=== PATIENT | male | born 1950 | race American Indian/Alaskan Native ===

== ENCOUNTER 2021-05-22 01:02 | Inpatient (IN) | payer BC ==
[2021-05-22] MEDS ORDERED: ASPIRIN 325 MG TAB PO ONE (01:48)
--- NOTE | 2021-05-22 01:51 | Emergency Department Report ---
ED Chest Pain HPI - General Chief Complaint: Dyspnea/Respdistress Stated Complaint: POSS AMS PUI?: No Time Seen by Provider: 05/22/21 01:40 Source: patient, EMS Mode of arrival: Stretcher Limitations: No Limitations - History of Present Illness Initial Comments: Patient is a 71-year-old male who presents emergency room with complaints of chest pain and shortness of breath patient states his chest pain shortness of breath started 3 days ago. Patient states that he feels like he is dying. Patient states his symptoms are worsening. Patient states he is in a local rehab center and was sent here for evaluation. Patient denies nausea vomiting. Patient states he was diagnosed with Covid May 07. Patient is alert and oriented x3. Patient answers questions appropriately. MD Complaint: chest pain, other -: Sudden Onset: during rest Pain Location: left chest Pain Radiation: none Severity: severe Severity scale (0 -10): 10 Quality: sharp Consistency: constant Improves With: rest Worsens With: exertion re: dyspnea, sense of impending doom. denies: nausea, vomting, diaphoresis Other Symptoms: denies: cough, fever, syncope Treatments Prior to Arrival: none Aspirin use within the Past 7 Days: (0) No - Related Data On Oral Contraceptives: No Allergies Allergy/AdvReac Type Severity Reaction Status Date / Time No Known Allergies Allergy Unverified 05/22/21 01:47 Heart Score - HEART Score History: Moderately suspicious EKG: Non-specific Age: > 65 Risk factors: 1-2 risk factors Troponin: 1-3x normal limit HEART Score: 6 - EKG Read Time Time EKG Completed: 00:00 (0) EKG Read Time: 00:00 ED Review of Systems ROS: Stated complaint: POSS AMS Other details as noted in HPI Constitutional: denies: chills, fever Eyes: denies: eye pain, eye discharge, vision change ENT: denies: ear pain, throat pain Respiratory: see HPI, shortness of breath. denies: cough, wheezing Cardiovascular: as per HPI, chest pain. denies: palpitations Endocrine: no symptoms reported Gastrointestinal: denies: abdominal pain, nausea, diarrhea Genitourinary: denies: urgency, dysuria Musculoskeletal: denies: back pain, joint swelling, arthralgia Skin: denies: rash, lesions Neurological: denies: headache, weakness, paresthesias Psychiatric: denies: anxiety, depression Hematological/Lymphatic: denies: easy bleeding, easy bruising ED Past Medical Hx - Past Medical History Previous Medical History?: Yes Hx CVA: Yes Additional medical history: unsteady gait - Surgical History Past Surgical History?: No - Family History Family history: no significant - Social History Smoking Status: Never Smoker Substance Use Type: None ED Physical Exam - General Limitations: No Limitations General appearance: alert, in no apparent distress - Head Head exam: Present: atraumatic, normocephalic - Eye Eye exam: Present: normal appearance - ENT ENT exam: Present: mucous membranes moist - Neck Neck exam: Present: normal inspection - Respiratory Respiratory exam: Present: normal lung sounds bilaterally. Absent: respiratory distress, wheezes, rales, rhonchi, chest wall tenderness - Cardiovascular Cardiovascular Exam: Present: regular rate, normal rhythm. Absent: systolic murmur, diastolic murmur, rubs, gallop - GI/Abdominal GI/Abdominal exam: Present: soft, normal bowel sounds - Rectal Rectal exam: Present: deferred - Extremities Exam Extremities exam: Present: normal inspection - Back Exam Back exam: Present: normal inspection - Neurological Exam Neurological exam: Present: alert, oriented X3 - Psychiatric Psychiatric exam: Present: normal affect, normal mood - Skin Skin exam: Present: warm, dry, intact, normal color. Absent: rash ED Course Vital Signs 05/22/21 05/22/21 05/22/21 01:29 01:52 02:00 Temperature 98.3 F Pulse Rate 80 76 66 Respiratory 18 20 15 Rate Blood Pressure 119/74 Blood Pressure 119/74 [Left] O2 Sat by Pulse 100 100 100 Oximetry 05/22/21 05/22/21 05/22/21 02:16 02:30 02:45 Temperature Pulse Rate 67 70 67 Respiratory 21 22 16 Rate Blood Pressure 119/72 115/63 124/76 Blood Pressure [Left] O2 Sat by Pulse 100 100 100 Oximetry 05/22/21 05/22/21 03:52 04:01 Temperature Pulse Rate 65 Respiratory 14 Rate Blood Pressure 124/76 Blood Pressure [Left] O2 Sat by Pulse 100 97 Oximetry - Reevaluation(s) Reevaluation #1: Patient states his pain is better. Patient states shortness of breath is better. 05/22/21 03:08 Reevaluation #2: Patient was placed on heparin. Patient has an elevated troponin. I discussed all results with patient. I discussed plan of care with patient. Patient agrees with plan of care and admission. Patient to be admitted to the hospitalist service. 05/22/21 04:48 - Consultations Consultation #1: Hospitalist consulted for admission. Hospitalist to admit patient. 05/22/21 04:48 JIMMIE score - Jimmie Score Age > 65: (1) Yes Aspirin use within the Past 7 Days: (1) Yes 3 or more CAD Risk Factors: (0) No 2 or more Angina events in past 24 hrs: (1) Yes Known CAD with more than 50% Stenosis: (0) No Elevated Cardiac Markers: (1) Yes ST Deviation Greater than 0.5mm: (0) No JIMMIE Score: 4 ED Medical Decision Making - Lab Data Result diagrams: 05/22/21 02:15 05/22/21 02:15 - EKG Data -: EKG Interpreted by Me EKG shows normal: sinus rhythm, axis, intervals, QRS complexes, ST-T waves Rate: normal - Radiology Data Radiology results: report reviewed, image reviewed interpreted by me: Chest x-ray: No pneumonia, no pneumothorax, no foreign body, no osseous findings, no acute findings CHEST 1 VIEW 05/22/2021 2:03 AM INDICATION / CLINICAL INFORMATION: Chest Pain. COMPARISON: None available. FINDINGS: SUPPORT DEVICES: None. HEART / MEDIASTINUM: No significant abnormality. LUNGS / PLEURA: No significant pulmonary or pleural abnormality. No pneumothorax. ADDITIONAL FINDINGS: No significant additional findings. IMPRESSION: 1. No acute findings. - Medical Decision Making Patient is a 71-year-old male that presents emergency room with complaints of chest pain shortness of breath. Patient had Covid a month ago. Patient at a local long-term sent here for evaluation. Patient had labs done which were essentially unremarkable except for elevated troponin. Patient has normal kidney function. Patient could have 5 skills with NSTEMI and the patient was placed on heparin drip. Patient's chest x-ray done is negative for acute finding. I personally reviewed the chest x-ray. Patient's EKG was done and it shows normal sinus rhythm no ST changes. Patient admitted to the hospital service for further evaluation and treatment. Critical care time documented due to the multiple reassessments, prolonged time at the bedside, interpretation of diagnostics and labs. - Differential Diagnosis Chest pain, shortness breath, ACS, Covid, pneumonia Critical Care Time: Yes Critical care time in (mins) excluding proc time.: 35 Critical care attestation.: If time is entered above; I have spent that time in minutes in the direct care of this critically ill patient, excluding procedure time. Critical Care Time: 35 minutes ED Disposition Clinical Impression: Shortness of breath, NSTEMI (non-ST elevated myocardial infarction) Chest pain Qualifiers: Chest pain type: unspecified Qualified Code(s): R07.9 - Chest pain, unspecified Disposition: ADMITTED INPATIENT Is pt being admited?: Yes Does the pt Need Aspirin: No Condition: Critical Time of Disposition: 04:57
--- NOTE | 2021-05-22 02:17 | XRay Report ---
CHEST 1 VIEW 05/22/2021 2:03 AM INDICATION / CLINICAL INFORMATION: Chest Pain. COMPARISON: None available. FINDINGS: SUPPORT DEVICES: None. HEART / MEDIASTINUM: No significant abnormality. LUNGS / PLEURA: No significant pulmonary or pleural abnormality. No pneumothorax. ADDITIONAL FINDINGS: No significant additional findings. IMPRESSION: 1. No acute findings. Signer Name: Dae Lakhani MD Signed: 05/22/2021 2:13 AM Workstation Name: [id number]
[2021-05-22 02:35] LABS: Hematocrit 33.5 % (35.5-45.6); Hemoglobin 11.2 gm/dl (11.8-15.2); Mean Corpuscular HGB Conc 34 % (32-34); Mean Corpuscular Volume 85 fl (84-94); Platelet Count 336 K/mm3 (140-440); Red Blood Count 3.93 M/mm3 (3.65-5.03); Red Cell Distribution Width 15.8 % (13.2-15.2)
[2021-05-22 02:46] LABS: INR 0.96 (0.87-1.13)
[2021-05-22 02:47] LABS: Partial Thromboplastin Time 33.9 Sec. (24.2-36.6)
[2021-05-22 03:00] LABS: Alanine Aminotransferase 18 units/L (7-56); Albumin 3.5 g/dL (3.9-5); BUN/Creatinine Ratio 19; Blood Urea Nitrogen 19 mg/dL (9-20); Calcium 10.6 mg/dL (8.4-10.2); Hemolysis Index 1
[2021-05-22 03:13] LABS: Anisocytosis 1+; Band Neutrophils # (Manual) 0.1 K/mm3; Poikilocytosis 2+; Schistocytes Rare; Total Cells Counted 100
[2021-05-22 03:14] LABS: Burr Cells 2+; Platelet Estimate Consistent w Auto
[2021-05-22] MEDS ORDERED: HEPARIN 10,000 UNITS/10 ML VIAL IV ONE (04:43)
[2021-05-22] MEDS ORDERED: HEPARIN/ 0.45% NACL DRIP 25,000 UNIT/500 ML BAG IV SCH (05:00)
[2021-05-22] MEDS ORDERED: ONDANSETRON 4 MG/2 ML INJ IV PRN (10:00)
[2021-05-22] MEDS ORDERED: oxyCODONE /ACETAMINOPHEN 5-325MG TAB PO PRN (10:00)
[2021-05-22] MEDS ORDERED: MORPHINE 4 MG/1 ML INJ IV PRN (10:00)
[2021-05-22] MEDS ORDERED: ACETAMINOPHEN 325 MG TAB PO PRN (10:00)
--- NOTE | 2021-05-22 13:35 | Consultation ---
History of Present Illness Consult date: 05/22/21 Consult reason: elevated troponin History of present illness: The patient is a 71-year-old man who presented to the emergency room from [facility], with generalized constitutional complaints. He had apparently been in the rehab following a protracted COVID-19 illness. In the emergency room, he had an EKG which was normal sinus rhythm, essentially normal ECG. Chest x-ray revealed a normal-sized cardiac silhouette, clear lungs. Laboratory studies were done that included a troponin level that was borderline increased at 0.08. Cardiology consultation was requested for further assessment. To be noted that during my interview with this patient he denied any chest pain, he denied any palpitations. He states that he has some cough and sputum production, which has been consistent since his Covid infection. There is no lower extremity edema. There is no prior cardiac history. Past History Past Medical History: other (COVID-19 infection) Medications and Allergies Allergies Allergy/AdvReac Type Severity Reaction Status Date / Time No Known Allergies Allergy Unverified 05/22/21 01:47 Home Medications Medication Instructions Recorded Confirmed Last Taken Type No Known Home Medications [No 05/22/21 05/22/21 Unknown History Reported Home Medications] Active Meds: Active Medications Acetaminophen (Acetaminophen 325 Mg Tab) 650 mg PO Q4H PRN PRN Reason: Pain MILD(1-3)/Fever >100.5/MADRIGAL Heparin Sodium/Sodium Chloride (Heparin/ 0.45% Nacl-25,000 Unit/500 Ml) 25,000 unit in 500 mls @ 18 mls/hr IV TITRATE TANNA; Protocol Last Admin: 05/22/21 05:12 Dose: 15 units/kg/hr, 18.371 mls/hr Documented by: Morphine Sulfate (Morphine 4 Mg/1 Ml Inj) 4 mg IV Q4H PRN PRN Reason: Pain , Severe (7-10) Ondansetron HCl (Ondansetron 4 Mg/2 Ml Inj) 4 mg IV Q8H PRN PRN Reason: Nausea And Vomiting Oxycodone/Acetaminophen (Oxycodone /Acetaminophen 5-325mg Tab) 1 tab PO Q6H PRN PRN Reason: Pain, Moderate (4-6) Sodium Chloride (Sodium Chloride 0.9% 10 Ml Flush Syringe) 10 ml IV BID TANNA Last Admin: 05/22/21 11:32 Dose: Not Given Documented by: Sodium Chloride (Sodium Chloride 0.9% 10 Ml Flush Syringe) 10 ml IV PRN PRN PRN Reason: LINE FLUSH Review of Systems Cardiovascular: shortness of breath, no chest pain, no orthopnea, no palpitations, no rapid/irregular heart beat, no edema, no syncope, no lightheadedness Physical Examination Vital Signs Temp Pulse Resp BP Pulse Ox 98.3 F 80 18 119/74 100 05/22/21 01:29 05/22/21 01:29 05/22/21 01:29 05/22/21 01:05/22/21 01:29 General appearance: no acute distress, cachectic, other (Patient appears cachectic and undernourished with evidence of muscle wasting) HEENT: Positive: PERRL Neck: Positive: neck supple Cardiac: Positive: Reg Rate and Rhythm Lungs: Positive: Decreased Breath Sounds Neuro: Positive: Grossly Intact Abdomen: Positive: Soft Male genitourinary: Positive: deferred Skin: Positive: Clear Extremities: Absent: edema Results 05/22/21 02:15 05/22/21 02:15 Cardiac Enzymes 05/22/21 Range/Units 02:15 AST 27 (5-40) units/L Coagulation 05/22/21 Range/Units 02:15 PT 13.8 (12.2-14.9) Sec. INR 0.96 (0.87-1.13) APTT 33.9 (24.2-36.6) Sec. CBC 05/22/21 Range/Units 02:15 WBC 7.9 (4.5-11.0) K/mm3 RBC 3.93 (3.65-5.03) M/mm3 Hgb 11.2 L (11.8-15.2) gm/dl Hct 33.5 L (35.5-45.6) % Plt Count 336 (140-440) K/mm3 Comprehensive Metabolic Panel 05/22/21 Range/Units 02:15 Sodium 143 (137-145) mmol/L Potassium 3.9 (3.6-5.0) mmol/L Chloride 101.2 (98-107) mmol/L Carbon Dioxide 28 (22-30) mmol/L BUN 19 (9-20) mg/dL Creatinine 1.0 (0.8-1.3) mg/dL Glucose 110 H (75-100) mg/dL Calcium 10.6 H (8.4-10.2) mg/dL AST 27 (5-40) units/L ALT 18 (7-56) units/L Alkaline Phosphatase 92 (35-129) units/L Total Protein 7.0 (6.3-8.2) g/dL Albumin 3.5 L (3.9-5) g/dL EKG interpretations - Telemetry EKG Rhythm: Sinus Rhythm Assessment and Plan - Patient Problems (1) Elevated troponin Current Visit: Yes Status: Acute Plan to address problem: 71-year-old man who is recovering slowly from a post COVID-19 illness. He has no cardiac symptoms, ECG is normal, chest x-ray is normal. No clinical or ECG indication of acute coronary syndrome, no indication for further cardiac evaluation. We will defer to internal medicine for further management of the patient's post COVID-19 symptoms and his apparent weight loss.
--- NOTE | 2021-05-22 14:35 | History and Physical Report ---
History of Present Illness Date of examination: 05/22/21 Date of admission: 05/22/21 04:57 Chief complaint: Shortness of breath and chest pain History of present illness: 71-year-old male with recent COVID-19 infection who presented with complaints of shortness of breath and chest pain. Patient tested positive on 05/06. Since then he has been in self-isolation at home with his . He denies having chest pain or shortness of breath that was bothersome. He reports a cough productive of thick webb to greenish sputum. He denies palpitations and hemoptysis. At time of interview he denies chest pain. At baseline he is able to take care of himself and walk at least 4 blocks without issue. Chest x-ray was negative for acute findings. Initial troponin was 0.083 and increased to 0.102. Cardiology was consulted for further recommendations. Patient was a dmitted to medicine for NSTEMI. Past History Past Medical History: No medical history, other (COVID-19 infection) Past Surgical History: No surgical history Social history: , lives with family Family history: no significant family history Medications and Allergies Allergies Allergy/AdvReac Type Severity Reaction Status Date / Time No Known Allergies Allergy Unverified 05/22/21 01:47 Home Medications Medication Instructions Recorded Confirmed Last Taken Type No Known Home Medications [No 05/22/21 05/22/21 Unknown History Reported Home Medications] Active Meds: Active Medications Acetaminophen (Acetaminophen 325 Mg Tab) 650 mg PO Q4H PRN PRN Reason: Pain MILD(1-3)/Fever >100.5/MADRIGAL Morphine Sulfate (Morphine 4 Mg/1 Ml Inj) 4 mg IV Q4H PRN PRN Reason: Pain , Severe (7-10) Ondansetron HCl (Ondansetron 4 Mg/2 Ml Inj) 4 mg IV Q8H PRN PRN Reason: Nausea And Vomiting Oxycodone/Acetaminophen (Oxycodone /Acetaminophen 5-325mg Tab) 1 tab PO Q6H PRN PRN Reason: Pain, Moderate (4-6) Sodium Chloride (Sodium Chloride 0.9% 10 Ml Flush Syringe) 10 ml IV BID TANNA Last Admin: 05/22/21 11:32 Dose: Not Given Documented by: Sodium Chloride (Sodium Chloride 0.9% 10 Ml Flush Syringe) 10 ml IV PRN PRN PRN Reason: LINE FLUSH Review of Systems All systems: negative Constitutional: poor appetite Respiratory: cough with sputum Exam - Physical Exam Narrative exam: GENERAL: Thin female. Lying in bed on room. HEENT: Normocephalic. Atraumatic. NECK: Supple. CHEST/LUNGS: CTAB on room air HEART/CARDIOVASCULAR: RRR. No murmur, rubs or gallops appreciated. ABDOMEN: +BS. NT/ND. SKIN: No rashes noted. NEURO: No focal motor deficit. Follows all commands. MUSCULOSKELETAL: No joint effusion EXTREMITIES: No cyanosis, clubbing or edema. PSYCH: Cooperative. - Constitutional Vitals: Temp Pulse Resp BP Pulse Ox 98.3 F 55 L 11 L 133/72 100 05/22/21 01:29 05/22/21 06:31 05/22/21 06:31 05/22/21 06:31 05/22/21 06:31 HEART Score - HEART Score EKG: Non-specific Age: > 65 Risk factors: 1-2 risk factors Troponin: Troponin T 0.083 ng/mL (0.00-0.029) H 05/22/21 02:15 Troponin: 1-3x normal limit Results - Labs CBC & Chem 7: 05/22/21 02:15 05/22/21 02:15 Labs: Laboratory Last Values WBC 7.9 K/mm3 (4.5-11.0) 05/22/21 02:15 RBC 3.93 M/mm3 (3.65-5.03) 05/22/21 02:15 Hgb 11.2 gm/dl (11.8-15.2) L 05/22/21 02:15 Hct 33.5 % (35.5-45.6) L 05/22/21 02:15 MCV 85 fl (84-94) 05/22/21 02:15 MCH 29 pg (28-32) 05/22/21 02:15 MCHC 34 % (32-34) 05/22/21 02:15 RDW 15.8 % (13.2-15.2) H 05/22/21 02:15 Plt Count 336 K/mm3 (140-440) 05/22/21 02:15 [place] % (Auto) Electronics Supervisor 05/22/21 02:15 Add Manual Diff Complete 05/22/21 02:15 Total Counted 100 05/22/21 02:15 Seg Neuts % (Manual) 62.0 % (40.0-70.0) 05/22/21 02:15 Band Neutrophils % 1.0 % 05/22/21 02:15 Lymphocytes % (Manual) 20.0 % (13.4-35.0) 05/22/21 02:15 Monocytes % (Manual) 17.0 % (0.0-7.3) H 05/22/21 02:15 Nucleated RBC % Not Reportable 05/22/21 02:15 Seg Neutrophils # Man 4.9 K/mm3 (1.8-7.7) 05/22/21 02:15 Band Neutrophils # 0.1 K/mm3 05/22/21 02:15 Lymphocytes # (Manual) 1.6 K/mm3 (1.2-5.4) 05/22/21 02:15 Abs React Lymphs (Man) 0.0 K/mm3 05/22/21 02:15 Monocytes # (Manual) 1.3 K/mm3 (0.0-0.8) H 05/22/21 02:15 Eosinophils # (Manual) 0.0 K/mm3 (0.0-0.4) 05/22/21 02:15 Basophils # (Manual) 0.0 K/mm3 (0.0-0.1) 05/22/21 02:15 Metamyelocytes # 0.0 K/mm3 05/22/21 02:15 Myelocytes # 0.0 K/mm3 05/22/21 02:15 Promyelocytes # 0.0 K/mm3 05/22/21 02:15 Blast Cells # 0.0 K/mm3 05/22/21 02:15 WBC Morphology Not Reportable 05/22/21 02:15 Hypersegmented Neuts Not Reportable 05/22/21 02:15 Hyposegmented Neuts Not Reportable 05/22/21 02:15 Hypogranular Neuts Not Reportable 05/22/21 02:15 Smudge Cells Not Reportable 05/22/21 02:15 Toxic Granulation Not Reportable 05/22/21 02:15 Toxic Vacuolation Not Reportable 05/22/21 02:15 Dohle Bodies Not Reportable 05/22/21 02:15 Pelger-Huet Anomaly Not Reportable 05/22/21 02:15 Bhupinder Rods Not Reportable 05/22/21 02:15 Platelet Estimate Consistent w auto 05/22/21 02:15 Clumped Platelets Not Reportable 05/22/21 02:15 Plt Clumps, EDTA Not Reportable 05/22/21 02:15 Large Platelets Not Reportable 05/22/21 02:15 Giant Platelets Not Reportable 05/22/21 02:15 Platelet Satelliting Not Reportable 05/22/21 02:15 Plt Morphology Comment Not Reportable 05/22/21 02:15 RBC Morphology Not Reportable 05/22/21 02:15 Dimorphic RBCs Not Reportable 05/22/21 02:15 Polychromasia Not Reportable 05/22/21 02:15 Hypochromasia Not Reportable 05/22/21 02:15 Poikilocytosis 2+ 05/22/21 02:15 Anisocytosis 1+ 05/22/21 02:15 Microcytosis Not Reportable 05/22/21 02:15 Macrocytosis Not Reportable 05/22/21 02:15 Spherocytes Not Reportable 05/22/21 02:15 Pappenheimer Bodies Not Reportable 05/22/21 02:15 Sickle Cells Not Reportable 05/22/21 02:15 Target Cells Not Reportable 05/22/21 02:15 Tear Drop Cells Not Reportable 05/22/21 02:15 Ovalocytes Not Reportable 05/22/21 02:15 Helmet Cells Not Reportable 05/22/21 02:15 Grimes-Ross Bodies Not Reportable 05/22/21 02:15 Munger Rings Not Reportable 05/22/21 02:15 [place] Cells 2+ 05/22/21 02:15 Bite Cells Not Reportable 05/22/21 02:15 Crenated Cell Not Reportable 05/22/21 02:15 Elliptocytes Not Reportable 05/22/21 02:15 Acanthocytes (Spur) Not Reportable 05/22/21 02:15 Rouleaux Not Reportable 05/22/21 02:15 Hemoglobin C Crystals Not Reportable 05/22/21 02:15 Schistocytes Rare 05/22/21 02:15 Malaria parasites Not Reportable 05/22/21 02:15 Jey Bodies Not Reportable 05/22/21 02:15 Hem Pathologist Commnt No 05/22/21 02:15 PT 13.8 Sec. (12.2-14.9) 05/22/21 02:15 INR 0.96 (0.87-1.13) 05/22/21 02:15 APTT 33.9 Sec. (24.2-36.6) 05/22/21 02:15 Sodium 143 mmol/L (137-145) 05/22/21 02:15 Potassium 3.9 mmol/L (3.6-5.0) 05/22/21 02:15 Chloride 101.2 mmol/L (98-107) 05/22/21 02:15 Carbon Dioxide 28 mmol/L (22-30) 05/22/21 02:15 Anion Gap 18 mmol/L 05/22/21 02:15 BUN 19 mg/dL (9-20) 05/22/21 02:15 Creatinine 1.0 mg/dL (0.8-1.3) 05/22/21 02:15 Estimated GFR > 60 ml/min 05/22/21 02:15 BUN/Creatinine Ratio 19 % 05/22/21 02:15 Glucose 110 mg/dL (75-100) H 05/22/21 02:15 Calcium 10.6 mg/dL (8.4-10.2) H 05/22/21 02:15 Total Bilirubin 0.50 mg/dL (0.1-1.2) 05/22/21 02:15 AST 27 units/L (5-40) 05/22/21 02:15 ALT 18 units/L (7-56) 05/22/21 02:15 Alkaline Phosphatase 92 units/L (35-129) 05/22/21 02:15 Troponin T 0.083 ng/mL (0.00-0.029) H 05/22/21 02:15 Total Protein 7.0 g/dL (6.3-8.2) 05/22/21 02:15 Albumin 3.5 g/dL (3.9-5) L 05/22/21 02:15 Albumin/Globulin Ratio 1.0 % 05/22/21 02:15 - Imaging and Cardiology EKG: image reviewed Chest x-ray: report reviewed, image reviewed Assessment and Plan Assessment and plan: #Elevated troponin -patient without chest pain and shortness of breath -CXR negative -EKG without acute ST changes -Troponin 0.083 -> 0.105 -will order another troponin -heparin drip discontinued -Cardiology consulted, recommendations appreciated #History of COVID-19 infection -Positive test 05/06 -Repeat ordered #Weight loss -patient reports decreased appetite since COVID infection -nutrition consult & boost with meals #Normocytic anemia -H&H 11.2/33.5 -Iron studies ordered -Patient may need age-appropriate outpatient colonoscopy
[2021-05-22 15:35] LABS: Chol/HDL Ratio 2.33 %
[2021-05-23 10:17] LABS: Hematocrit 34.2 % (35.5-45.6); Hemoglobin 11.8 gm/dl (11.8-15.2); Mean Corpuscular HGB Conc 35 % (32-34); Mean Corpuscular Volume 85 fl (84-94); Platelet Count 323 K/mm3 (140-440); Red Blood Count 4.04 M/mm3 (3.65-5.03); Red Cell Distribution Width 14.9 % (13.2-15.2)
[2021-05-23 10:33] LABS: BUN/Creatinine Ratio 18; Blood Urea Nitrogen 14 mg/dL (9-20); Calcium 10.3 mg/dL (8.4-10.2); Hemolysis Index 3
--- NOTE | 2021-05-23 10:58 | Progress Note ---
Assessment and Plan Assessment and plan: #Elevated troponin -patient without chest pain and shortness of breath -CXR negative -EKG without acute ST changes -Troponin 0.083 -> 0.105 -will order another troponin -heparin drip discontinued -Cardiology consulted, recommendations appreciated #Dyspnea -patient reports "not being able to breathe" -oxygen saturation within normal limits on examinations -likely anxiety component, persistent thoughts of -home O2 evaluation for reassurance #History of COVID-19 infection -Positive test 05/06 -Repeat ordered #Weight loss -patient reports decreased appetite since COVID infection -patient has not had age appropriate cancer screenings; advised to follow up with PCP at discharge -nutrition consult & boost with meals #Normocytic anemia -H&H 11.8/34.2 -Iron studies pending -Patient will need age-appropriate outpatient colonoscopy Disposition Plan: Pending mental health eval Total Time Spent with Patient (Minutes): 20 minutes Hospitalist Physical - Physical exam Narrative exam: GENERAL: Thin female. Lying in bed on room. HEENT: Normocephalic. Atraumatic. NECK: Supple. CHEST/LUNGS: CTAB on room air HEART/CARDIOVASCULAR: RRR. No murmur, rubs or gallops appreciated. ABDOMEN: +BS. NT/ND. SKIN: No rashes noted. NEURO: No focal motor deficit. Follows all commands. MUSCULOSKELETAL: No joint effusion EXTREMITIES: No cyanosis, clubbing or edema. PSYCH: Cooperative. - Constitutional Vitals: Temp Pulse Resp BP Pulse Ox 97.6 F 70 18 124/72 99 05/23/21 07:36 05/23/21 07:36 05/23/21 07:36 05/23/21 07:36 05/23/21 07:36 General appearance: Present: no acute distress, cachectic, other (Patient appears cachectic and undernourished with evidence of muscle wasting) HEART Score - HEART Score EKG: Non-specific Age: > 65 Risk factors: 1-2 risk factors Troponin: Troponin T 0.095 ng/mL (0.00-0.029) H 05/22/21 16:26 Troponin: 1-3x normal limit Results - Labs CBC & Chem 7: 05/23/21 09:51 05/23/21 09:51 Labs: Laboratory Last Values WBC 7.8 K/mm3 (4.5-11.0) 05/23/21 09:51 RBC 4.04 M/mm3 (3.65-5.03) 05/23/21 09:51 Hgb 11.8 gm/dl (11.8-15.2) 05/23/21 09:51 Hct 34.2 % (35.5-45.6) L 05/23/21 09:51 MCV 85 fl (84-94) 05/23/21 09:51 MCH 29 pg (28-32) 05/23/21 09:51 MCHC 35 % (32-34) H 05/23/21 09:51 RDW 14.9 % (13.2-15.2) 05/23/21 09:51 Plt Count 323 K/mm3 (140-440) 05/23/21 09:51 Will % (Auto) Machine Stitcher 05/22/21 02:15 Add Manual Diff Complete 05/22/21 02:15 Total Counted 100 05/22/21 02:15 Seg Neuts % (Manual) 62.0 % (40.0-70.0) 05/22/21 02:15 Band Neutrophils % 1.0 % 05/22/21 02:15 Lymphocytes % (Manual) 20.0 % (13.4-35.0) 05/22/21 02:15 Monocytes % (Manual) 17.0 % (0.0-7.3) H 05/22/21 02:15 Nucleated RBC % Not Reportable 05/22/21 02:15 Seg Neutrophils # Man 4.9 K/mm3 (1.8-7.7) 05/22/21 02:15 Band Neutrophils # 0.1 K/mm3 05/22/21 02:15 Lymphocytes # (Manual) 1.6 K/mm3 (1.2-5.4) 05/22/21 02:15 Abs React Lymphs (Man) 0.0 K/mm3 05/22/21 02:15 Monocytes # (Manual) 1.3 K/mm3 (0.0-0.8) H 05/22/21 02:15 Eosinophils # (Manual) 0.0 K/mm3 (0.0-0.4) 05/22/21 02:15 Basophils # (Manual) 0.0 K/mm3 (0.0-0.1) 05/22/21 02:15 Metamyelocytes # 0.0 K/mm3 05/22/21 02:15 Myelocytes # 0.0 K/mm3 05/22/21 02:15 Promyelocytes # 0.0 K/mm3 05/22/21 02:15 Blast Cells # 0.0 K/mm3 05/22/21 02:15 WBC Morphology Not Reportable 05/22/21 02:15 Hypersegmented Neuts Not Reportable 05/22/21 02:15 Hyposegmented Neuts Not Reportable 05/22/21 02:15 Hypogranular Neuts Not Reportable 05/22/21 02:15 Smudge Cells Not Reportable 05/22/21 02:15 Toxic Granulation Not Reportable 05/22/21 02:15 Toxic Vacuolation Not Reportable 05/22/21 02:15 Dohle Bodies Not Reportable 05/22/21 02:15 Pelger-Huet Anomaly Not Reportable 05/22/21 02:15 Bhupinder Rods Not Reportable 05/22/21 02:15 Platelet Estimate Consistent w auto 05/22/21 02:15 Clumped Platelets Not Reportable 05/22/21 02:15 Plt Clumps, EDTA Not Reportable 05/22/21 02:15 Large Platelets Not Reportable 05/22/21 02:15 Giant Platelets Not Reportable 05/22/21 02:15 Platelet Satelliting Not Reportable 05/22/21 02:15 Plt Morphology Comment Not Reportable 05/22/21 02:15 RBC Morphology Not Reportable 05/22/21 02:15 Dimorphic RBCs Not Reportable 05/22/21 02:15 Polychromasia Not Reportable 05/22/21 02:15 Hypochromasia Not Reportable 05/22/21 02:15 Poikilocytosis 2+ 05/22/21 02:15 Anisocytosis 1+ 05/22/21 02:15 Microcytosis Not Reportable 05/22/21 02:15 Macrocytosis Not Reportable 05/22/21 02:15 Spherocytes Not Reportable 05/22/21 02:15 Pappenheimer Bodies Not Reportable 05/22/21 02:15 Sickle Cells Not Reportable 05/22/21 02:15 Target Cells Not Reportable 05/22/21 02:15 Tear Drop Cells Not Reportable 05/22/21 02:15 Ovalocytes Not Reportable 05/22/21 02:15 Helmet Cells Not Reportable 05/22/21 02:15 Grimes-Edmonds Bodies Not Reportable 05/22/21 02:15 Odin Rings Not Reportable 05/22/21 02:15 [place] Cells 2+ 05/22/21 02:15 Bite Cells Not Reportable 05/22/21 02:15 Crenated Cell Not Reportable 05/22/21 02:15 Elliptocytes Not Reportable 05/22/21 02:15 Acanthocytes (Spur) Not Reportable 05/22/21 02:15 Rouleaux Not Reportable 05/22/21 02:15 Hemoglobin C Crystals Not Reportable 05/22/21 02:15 Schistocytes Rare 05/22/21 02:15 Malaria parasites Not Reportable 05/22/21 02:15 Jey Bodies Not Reportable 05/22/21 02:15 Hem Pathologist Commnt No 05/22/21 02:15 PT 13.8 Sec. (12.2-14.9) 05/22/21 02:15 INR 0.96 (0.87-1.13) 05/22/21 02:15 APTT 33.9 Sec. (24.2-36.6) 05/22/21 02:15 Heparin Anti-Xa Level 0.20 U.I./ml (0.3-0.7) L 05/22/21 14:12 Sodium 143 mmol/L (137-145) 05/22/21 02:15 Potassium 3.9 mmol/L (3.6-5.0) 05/22/21 02:15 Chloride 101.2 mmol/L (98-107) 05/22/21 02:15 Carbon Dioxide 27 mmol/L (22-30) 05/23/21 09:51 Anion Gap 18 mmol/L 05/22/21 02:15 BUN 14 mg/dL (9-20) 05/23/21 09:51 Creatinine 0.8 mg/dL (0.8-1.3) 05/23/21 09:51 Estimated GFR > 60 ml/min 05/23/21 09:51 BUN/Creatinine Ratio 18 % 05/23/21 09:51 Glucose 112 mg/dL (75-100) H 05/23/21 09:51 Hemoglobin A1c 6.1 % (4-6) H 05/22/21 14:12 Calcium 10.3 mg/dL (8.4-10.2) H 05/23/21 09:51 Ferritin 296.1 ng/mL (30.0-300.0) 05/22/21 16:26 Total Bilirubin 0.50 mg/dL (0.1-1.2) 05/22/21 02:15 AST 27 units/L (5-40) 05/22/21 02:15 ALT 18 units/L (7-56) 05/22/21 02:15 Alkaline Phosphatase 92 units/L (35-129) 05/22/21 02:15 Troponin T 0.095 ng/mL (0.00-0.029) H 05/22/21 16:26 Total Protein 7.0 g/dL (6.3-8.2) 05/22/21 02:15 Albumin 3.5 g/dL (3.9-5) L 05/22/21 02:15 Albumin/Globulin Ratio 1.0 % 05/22/21 02:15 Triglycerides 69 mg/dL (2-149) 05/22/21 14:12 Cholesterol 105 mg/dL (50-199) 05/22/21 14:12 LDL Cholesterol Direct 39 mg/dL (50-130) L 05/22/21 14:12 HDL Cholesterol 45 mg/dL (40-59) 05/22/21 14:12 Cholesterol/HDL Ratio 2.33 % 05/22/21 14:12 Dc/IV: Voiding Method Urinal Active Medications - Current Medications Current Medications: Generic Name Dose Route Start Last Admin Trade Name Freq PRN Reason Stop Dose Admin Acetaminophen 650 mg 05/22/21 10:00 Acetaminophen 325 Mg Tab PO Q4H PRN Pain MILD(1-3)/Fever >100.5/MADRIGAL Morphine Sulfate 4 mg 05/22/21 10:00 Morphine 4 Mg/1 Ml Inj IV Q4H PRN Pain , Severe (7-10) Ondansetron HCl 4 mg 05/22/21 10:00 Ondansetron 4 Mg/2 Ml Inj IV Q8H PRN Nausea And Vomiting Oxycodone/Acetaminophen 1 tab 05/22/21 10:00 Oxycodone /Acetaminophen 5-325mg Tab PO Q6H PRN Pain, Moderate (4-6) Sodium Chloride 10 ml 05/22/21 10:00 05/23/21 09:18 Sodium Chloride 0.9% 10 Ml Flush Syringe IV 10 ml BID TANNA Administration Sodium Chloride 10 ml 05/22/21 10:00 Sodium Chloride 0.9% 10 Ml Flush Syringe IV PRN PRN LINE FLUSH Nutrition/Malnutrition Assess - Dietary Evaluation Nutrition/Malnutrition Findings: Nutrition Notes Start: 05/22/21 14:12 Freq: Status: Active Protocol: Document 05/22/21 14:12 [facility] (Rec: 05/22/21 14:19 [facility] [id number]) Nutrition Notes 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 Weight Status Underweight Subjective/Other Information Pt screened for malnutrition risk. Spoke to pt via phone at 14:10. He says that he is a pescatarian; verbalizes several food preferences ( preferences sent to kitchen). He reports a fair appetite lately sec to illness; says he eats as much as he can. Burn Absent Trauma Absent Current % PO Fair (50-74%) Minimum of two criteria No Is patient on ventilator? No Is Patient Ambulatory and/or Out of Bed Yes REE-([facility]-ambulatory/OOB) [ 1901.874 NUTR.MSJOOB] Kcal/Kg value to use for calculation 35 Approximate Energy Requirements Using 2143 kcal/Kg Calculation Used for Recommendations Kcal/kg Additional Notes Pro needs 1.2-1.5g/k-92g/ day Fluid needs 1ml/kcal Nutrition Intervention Follow-Up By: 05/27/21 Additional Comments F/U: intakes, additional food preferences
--- NOTE | 2021-05-23 12:56 | Event Note ---
Date: 05/23/21 Had the opportunity to speak with the patient's Arleth Atkinson. We discussed his recent decline in health. She was concerned about his nutritional status. We discussed, she was interested in PEG tube. I advised that PEG tube is not needed at this time and that patient has been eating by mouth. Plan to discharge patient back to rehab center once stable.
[2021-05-24] MEDS ORDERED: traMADol 50 MG TAB ONE (01:37)
[2021-05-24 04:26] LABS: Hematocrit 32.4 % (35.5-45.6); Hemoglobin 11.1 gm/dl (11.8-15.2)
[2021-05-24 04:34] LABS: BUN/Creatinine Ratio 16; Blood Urea Nitrogen 18 mg/dL (9-20); Calcium 10.4 mg/dL (8.4-10.2); Hemolysis Index 3
[2021-05-24 08:17] VITALS: BP 125/64
[2021-05-24] MEDS ORDERED: POTASSIUM CHLORIDE ER 20 MEQ TAB PO ONE ×2 (08:25→10:31)
--- NOTE | 2021-05-24 10:54 | Discharge Summary ---
Providers - Providers Date of Admission: 05/22/21 04:57 Date of discharge: 05/24/21 Attending physician: LEAH DARDEN MD 05/22/21 16:20 Consult to Dietitian/Nutrition [CONS] Routine Physician Instructions: Reason For Exam: Reason for Consult: Malnutrition 05/23/21 07:38 Physical Therapy Evaluation and Treat [CONS] Routine Comment: Reason For Exam: Weakness 05/23/21 12:39 Speech Therapy Evaluation and Treat [CONS] Routine Reason For Exam: swallow evaluation 05/23/21 12:52 Consult to Case Management [CONS] Routine Services Needed at Discharge: Other Notified:: case management Additional Physician Instructions: Discharge planning 05/23/21 12:57 Consult to Mental Health [CONS] Routine Reason For Exam: Paranoia and thoughts about dying Primary care physician: [employer] PROFESSOR Hospitalization Reason for admission: chest pain and shortness of breath Condition: Stable Hospital course: 71-year-old male with recent COVID-19 infection who presented from SNF with chest pain and shortness of breath. Chest x-ray was negative for acute findings. Initial troponin was 0.03. Patient was admitted for NSTEMI. Cardiology was consulted and found no further indication for evaluation. Patient discussed with spouse, who wanted mental health evaluation. Patient was evaluated by mental health and it was determined that he did not require inpatient mental health care. Chest pain and shortness of breath resolved spontaneously. Patient was discharged back to SNF. Disposition: 03 [facility] Final Discharge Diagnosis (Prints w/discharge instructions): Elevated troponin. Weight loss. Dyspnea. Normocytic anemia Time spent for discharge: 10 minutes Core Measure Documentation - Palliative Care Palliative Care/ Comfort Measures: Not Applicable - Core Measures Any of the following diagnoses?: none Exam - Physical Exam Narrative exam: GENERAL: Thin male. Lying in bed. CHEST/LUNGS: CTAB on room air HEART/CARDIOVASCULAR: RRR. No murmur, rubs or gallops appreciated. ABDOMEN: +BS. NT/ND. NEURO: No focal motor deficit. Follows all commands. MUSCULOSKELETAL: No joint effusion EXTREMITIES: No cyanosis, clubbing or edema. PSYCH: Cooperative. - Constitutional Vitals: Temp Pulse Resp BP Pulse Ox 97.6 F 62 18 125/64 98 05/24/21 08:16 05/24/21 08:54 05/24/21 08:16 05/24/21 08:16 05/24/21 08:54 Plan Follow up with: PRIMARY CAREMD [Primary Care Provider] - 7 Days Forms: AMA Form
--- NOTE | 2021-05-24 10:59 | Consultation ---
History of Present Illness - Reason for Consult Consult date: 05/24/21 Reason for consult: mental health evaluation - Chief Complaint Chief complaint: Shortness of breath and chest pain - History of Present Psychiatric Illness Per Note: 71-year-old male with recent COVID-19 infection who presented with complaints of shortness of breath and chest pain. Patient tested positive on 05/06. Since then he has been in self-isolation at home with his . He denies having chest pain or shortness of breath that was bothersome. He reports a cough productive of thick webb to greenish sputum. He denies palpitations and hemoptysis. At time of interview he denies chest pain. At baseline he is able to take care of himself and walk at least 4 blocks without issue. Chest x-ray was negative for acute findings. Initial troponin was 0.083 and increased to 0.102. Cardiology was consulted for further recommendations. Patient was admitted to medicine for NSTEMI. Toan Atkinson is a 71 year old male with no prior psychiatric history. In my interview with the patient, he is calm and and oriented x 3. The patient was complaining about his food. He denies being depressed but states he is more anxious because he wants to be discharged. He denies any current suicidal ideation and denies hallucinations. Diagnoses: Denies Suicide attempts or Self-harm behavior: Denies Prior psychiatric hospitalizations:Denies Substance Abuse history:Denies Previous psychiatric medications tried: Denies Outpatient treatment: Denies PAST MEDICAL HISTORY: Family Psychiatric History: None reported or documented SOCIAL HISTORY Marital Status: Living Arrangements: Lives in Employment Status: Retired Access to guns/weapons: None reported Education: some college History of Abuse: None reported Legal History: Unknown REVIEW OF SYSTEMS Constitutional: Negative for weight loss ENT: Negative for stridor Respiratory: Negative for cough or hemoptysis All other systems reviewed and are negative MENTAL STATUS EXAMINATION General Appearance: Dressed appropriately. Behavior: Cooperative Mood:" ok" Affect: Congruent with stated mood Speech: Normal tone, and pace Thought Process: Not suicidal Thought Content: Goal directed Suicidal Ideation: Denies Homicidal Ideation: Denies Hallucinations: Denies Delusions: None Insight and Judgment: Limited Memory/Cognition: Limited ASSESSMENT Treatment Plan The patient to comply with previously prescribed medications Risks, benefits and alternatives of medications discussed with the patient, questions answered and consent obtained from patient. PSYCHOTHERAPY: Supportive psychotherapy provided MEDICAL: Per primary team DELIRIUM PRECAUTIONS: Please re-orient patient frequently, keep lights on during the day, and minimize benzodiazepines and opiates as these medications could worsen patient's confusion. SPLUNK CONSULTANT: Defer to primary DISPOSITION: Do not recommend acute inpatient psychiatric hospitalization at this time. FOLLOW-UP: Will sign off. Case staffed with Dr. Gonzalez Please contact with any questions and/or concerns. Thank you for the consult. Medications and Allergies Allergies Allergy/AdvReac Type Severity Reaction Status Date / Time No Known Allergies Allergy Unverified 05/22/21 01:47 Home Medications Medication Instructions Recorded Confirmed Last Taken Type Acetaminophen [Acetaminophen TAB] 650 mg PO Q4H PRN tablet 05/24/21 Unknown Rx Active Meds: Active Medications Acetaminophen (Acetaminophen 325 Mg Tab) 650 mg PO Q4H PRN PRN Reason: Pain MILD(1-3)/Fever >100.5/MADRIGAL Morphine Sulfate (Morphine 4 Mg/1 Ml Inj) 4 mg IV Q4H PRN PRN Reason: Pain , Severe (7-10) Ondansetron HCl (Ondansetron 4 Mg/2 Ml Inj) 4 mg IV Q8H PRN PRN Reason: Nausea And Vomiting Oxycodone/Acetaminophen (Oxycodone /Acetaminophen 5-325mg Tab) 1 tab PO Q6H PRN PRN Reason: Pain, Moderate (4-6) Last Admin: 05/24/21 02:24 Dose: 1 tab Documented by: Sodium Chloride (Sodium Chloride 0.9% 10 Ml Flush Syringe) 10 ml IV BID TANNA Last Admin: 05/23/21 22:30 Dose: 10 ml Documented by: Sodium Chloride (Sodium Chloride 0.9% 10 Ml Flush Syringe) 10 ml IV PRN PRN PRN Reason: LINE FLUSH Mental Status Exam - Vital signs Last Vital Signs Temp 97.6 F 05/24/21 08:16 Pulse 62 05/24/21 08:54 Resp 18 05/24/21 08:16 BP 125/64 05/24/21 08:16 Pulse Ox 98 05/24/21 08:54 Results Result Diagrams: 05/24/21 03:22 05/24/21 03:22 Abnormal lab results 05/24/21 05/24/21 Range/Units 03:22 03:22 Hgb 11.1 L (11.8-15.2) gm/dl Hct 32.4 L (35.5-45.6) % Potassium 3.4 L (3.6-5.0) mmol/L Glucose 128 H (75-100) mg/dL Calcium 10.4 H (8.4-10.2) mg/dL All other labs normal.
--- NOTE | 2021-05-27 14:42 | Electrocardiograph Report ---
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
== END 2021-05-24 18:11 | DRG 313 ==
LOC: ED 01:02 → 4A 04:57
PROVIDERS: ADMIT Internal Medicine Geriatric Medicine; ATTEND Student in an Organized Health Care Education/Training Program
DX: R07.89 Other chest pain (principal); Z68.1 Body mass index [BMI] 19.9 or less, adult; R77.8 Other specified abnormalities of plasma proteins; Z20.822 Contact with and (suspected) exposure to COVID-19; Z86.73 Personal history of transient ischemic attack (TIA), and cerebral infarction without residual deficits; D64.9 Anemia, unspecified; R63.4 Abnormal weight loss
CPT/HCPCS: 36415; 71045; 80048; 80053; 80061; 82728; 83036; 84484; 85007; 85014; 85018; 85025; 85027; 85049; 85520; 85610; 85730; 93005; G0378; J1644; U0003